=== PATIENT | male | born 1965 | race Caucasian/White ===

== ENCOUNTER 2021-06-16 01:29 | Inpatient (IN) | payer MEDICAID, SELFPAY ==
[~2021-06-16] VITALS: Ht 188 cm; Wt 106.6 kg
[2021-06-16] VITALS (8 sets, daily range): BP systolic 135–164
[~2021-06-16 01:29] MED LIST: AMOX-426 PO; IBUP-1970 PO; L.RH1CAP PO
--- NOTE | 2021-06-16 01:45 | NUR ---
Patient to ER bed 8 to gown for evaluation. Side rails up.
--- NOTE | 2021-06-16 01:48 | NUR ---
Patient BIB by family from home. C/O shortness of breath x 2 days. Patient reported, had cough and shortness of breath since Saturday. (test COVID-19 tree time-negative) A/O,X4, Oxygen sat 88 % RA, shortness of breath, place patient on medication aide and pulse ox, on Oxymizer 5 L/min- oxygen sat 91 %
--- NOTE | 2021-06-16 01:55 | NUR ---
ER Dr. FRAZIER at bedside examining patient.
[2021-06-16] MEDS ORDERED: NS 1000 ML IV.SOLN IV ONE (02:15)
[2021-06-16] MEDS ORDERED: AZITHROMYCIN 500 MG in D5W 250 ML IV ONE (02:15)
[2021-06-16] MEDS ORDERED: cefTRIAXone 1 GM IVPB PREMIX 50 ML IV ONE (02:15)
[2021-06-16 02:35] LABS: BASOPHILS # (AUTO) 0.1 K/uL (0.0-0.2); BASOPHILS % (AUTO) 0.6 % (0.0-2.0); EOSINOPHILS # (AUTO) 0.2 K/uL (0.0-0.4); EOSINOPHILS % (AUTO) 1.3 % (0.0-4.0); HEMATOCRIT 42.6 % (36-54); HEMOGLOBIN 14.6 g/dL (14.0-18.0); LYMPHOCYTES # (AUTO) 0.5 K/uL (1.0-5.5); LYMPHOCYTES % (AUTO) 4.5 % (20.5-51.5); MEAN CORPUSCULAR HEMOGLOBIN 30 pg (27-31); MEAN CORPUSCULAR HGB CONC 34 % (32-36); MEAN CORPUSCULAR VOLUME 87 fL (79.0-98.0); MONOCYTES # (AUTO) 0.8 K/uL (0.0-1.0); MONOCYTES % (AUTO) 6.6 % (1.7-9.3); NEUTROPHILS # (AUTO) 10.7 K/uL (1.8-7.7); PLATELET COUNT (AUTO) 328 K/uL (130-430); RED CELL DISTRIBUTION WIDTH 13.5 % (9.0-15.0); WHITE BLOOD COUNT (AUTO) 12.3 K/uL (4.8-10.8)
[2021-06-16 02:45] LABS: CALCIUM 8.1 mg/dL (8.4-11.0); CREATININE 1.04 mg/dL (0.55-1.30); POTASSIUM 4.1 mmol/L (3.5-5.1)
[2021-06-16 02:51] LABS: ALBUMIN 2.6 g/dL (3.4-4.8); TOTAL BILIRUBIN 0.7 mg/dL (0.0-1.0)
[2021-06-16] MEDS ORDERED: PROMETHAZINE HCL/CODEINE 6.25-10 mg/5 mL UDC PO ONE (03:00)
[2021-06-16 03:02] LABS: PROTHROMBIN TIME 10.1 SECS (9.5-12.5)
[2021-06-16 03:08] LABS: RESPIRATORY SYNCYTIAL VIRUS NEGATIVE (NEGATIVE)
[2021-06-16] MEDS ORDERED: ALBUTEROL SULFATE 0.083% 2.5 MG/3 ML VIAL.NEB INH ONE (03:45)
[2021-06-16] MEDS ORDERED: DEXAMETHASONE SOD PHOSPHATE 10 MG/ML VIAL IVP ONE (03:45)
[2021-06-16] MEDS ORDERED: IPRATROPIUM BROM 0.5 MG/2.5 ML VIAL.NEB (ATROVENT) INH ONE (03:45)
--- NOTE | 2021-06-16 03:55 | NUR ---
RT at bedside for breathing treatment .
--- NOTE | 2021-06-16 04:00 | NUR ---
# 20 gauge angiocath placed to RAC. Use of asceptic technique. Opsite placed over site. Blood return noted. Blood for lab drawn from site. Flushed with 10 cc of normal saline. No evidence of infiltration noted. Patient tolerated well.
[2021-06-16] MEDS ORDERED: AZITHROMYCIN 500 MG/VIAL (ZITHROMAX) IV ONE (04:04)
--- NOTE | 2021-06-16 04:18 | NUR ---
DR. FRAZIER AT BEDSIDE TO EXPLAIN RESULTS AND TREATMENT PLANS.
[2021-06-16] MEDS ORDERED: NALOXONE HCL 0.4 MG/ML AMP (NARCAN) IVP PRN (04:45)
[2021-06-16] MEDS ORDERED: ACETAMINOPHEN/CODEINE 300 MG-30 MG TABLET PO ONE (04:45)
[2021-06-16] MEDS ORDERED: ACETAMINOPHEN/CODEINE 300 MG-30 MG TABLET ONE (04:58)
--- NOTE | 2021-06-16 05:37 | NUR ---
PATIENT IS SLEEPING , NO ACUTE DISTRESS, OXYGEN SAT 93 % WITH OXYMIZER 5 L/MIN
[2021-06-16 05:41] LABS: BILIRUBIN,URINE NEGATIVE (NEGATIVE); BLOOD, URINE NEGATIVE (NEGATIVE); CLARITY/URINE CLEAR (CLEAR); COLOR,URINE YELLOW (YELLOW); GLUCOSE,URINE NEGATIVE (NEGATIVE); KETONES,URINE NEGATIVE (NEGATIVE); LEUKOCYTE ESTERASE ,URINE NEGATIVE (NEGATIVE); NITRITE, URINE NEGATIVE (NEGATIVE); PROTEIN URINE 2+ (NEGATIVE)
[2021-06-16 06:30] LABS: BACTERIA,URINE FEW /HPF (None Seen); WBC,URINE 0-3 /HPF (0-3)
[2021-06-16 06:32] LABS: MUCUS,URINE None Seen /LPF (None Seen)
--- NOTE | 2021-06-16 07:10 | NUR ---
Report given to ESME Arellano and endorse care of patient,
--- NOTE | 2021-06-16 07:22 | NUR ---
PT WITH EYES CLOSED, EASILY AROUSABLE. AAOX4, IN NAD. DENIES ANY SOB, ON OXIMIZER AT 98%, DENIES ANY SOB OR CP. VSS, AFEBRILE. SAFTEY PRECAUTIONS IN PLACE. WILL CONT TO MONITOR. WAIITNG FOR TELE BED. PT AWARE OF PLANOF CARE AND VERBALIZED UNDERSTANDING.
--- NOTE | 2021-06-16 07:38 | NUR ---
CONSULTATION PAGED/CALLED Reason for Consultation: [] PNA Person Who was Notified: [] DR TREVIÑO Consulting Physician: [] DR TREVIÑO Rug Setter Velvet Specialty: [] PULMO Ordering Physician: [] DR NAVARRO
--- NOTE | 2021-06-16 08:02 | NUR ---
BREAKFAST TRAY OFFRERED, PT ATE 100%.WALKED WELL TO BATHROOM, STEADY GAIT.
[2021-06-16] MEDS: IPRATROPIUM/ALBUTEROL SULFATE 3 ML AMPUL.NEB (DUONEB) INH SCH ×5 (08:14→23:00)
--- NOTE | 2021-06-16 09:52 | NUR ---
Patient will be admitted to care of DR NAVAROR. Admitted to unit. Will go to room . Belongings list completed. Complete and up to date summary report printed. SBAR report to be given at bedside with opportunity for questions.
--- NOTE | 2021-06-16 10:05 | NUR ---
Pt arrived from ER via gurney. Pt is A&Ox4. Ambulatory with steady gait. Skin is intact. In gown and placed cardiac technologist on pt. Assessed vitals and had a temp of 99.4, o2 94% NC 4L, BP 164/97, HR 83, RR 16. Bed is in lowest position. Call light within reach. Has a 20g right AC and is patent. Pt states he has 5/10 pain on left side of middle abdomen. Has no other c/o. No s/s of distress. Admissions assessment completed. PCR test done and sent to lab. Will continue to monitor.
[2021-06-16] MEDS ORDERED: ENOXAPARIN SODIUM 40 MG/0.4 ML SYRINGE SUBCUT ONE (10:15)
[2021-06-16] MEDS ORDERED: PIPERACILLIN/TAZO 3.375 GM in NS 50 ML IV SCH (12:00)
[2021-06-16] MEDS ORDERED: IOHEXOL 350 mgI/mL, 150 ML INFUS..BTL IV ONE (12:56)
--- NOTE | 2021-06-16 12:56 | NUR ---
NURSING NOTE Brought pt his lunch tray. Pt is in bed sleeping. Woke pt up to let him know his fed is at bedside. Pt has no c/o. A&Ox4. Bed in lowest position and call light is within reach. Talked with his fiance and let her know that we are waiting for his PCR test results before we can allow him to have any visitors. She is aware that once results are back we will let pt know. Pt's fiance had no c/o and has no further questions. Waiting for pt's medication (Zosyn) to be delivered by pharmacy. Called pharmacy to let them know that the medication was due at 12 and it has still not been received.
[2021-06-16] MEDS ORDERED: PIPERACILLIN/TAZOBACTAM 3.375 GM/ D5W 50 ML IV ONE ×2 (13:00)
--- NOTE | 2021-06-16 13:36 | NUR ---
NURSING NOTE Started pt on his scheduled medication (Zosyn). Pt finished eating his lunch and consumed 100%. Pt has no c/o. Will continue to monitor.
--- NOTE | 2021-06-16 14:59 | NUR ---
NURSING NOTE Pt accidently pulled out his IV. Cleaned site and notified pt that another IV will be placed. Pt has no c/o.
--- NOTE | 2021-06-16 15:09 | NUR ---
NURSING NOTES Placed a 20g IV on right AC. placed dressing and tape to secure IV. Flushed IV and it is patent. No infiltration noted. Pt has no c/o.
[2021-06-16] MEDS: ACETAMINOPHEN 325 MG TABLET PO PRN (15:29)
[2021-06-16] MEDS: PIPERACILLIN/TAZOBACTAM 3.375 GM/ D5W 50 ML IV SCH ×4 (18:23→22:58)
[2021-06-16] MEDS: cloNIDine HCL 0.1 MG TABLET PO PRN (18:23)
--- NOTE | 2021-06-16 18:30 | NUR ---
NURSING NOTE Called in regards to pt c/o abdomen pain on left middle area. Pt rates pain 10/10 and is sharp. Does not radiate. gave telephone order of Toradol 15mg IV to be given and also CT of abdomen/pelvis with contrast.
[2021-06-16] MEDS: KETOROLAC TROMETHAMINE 15 MG VIAL IVP PRN ×2 (18:39→22:59)
--- NOTE | 2021-06-16 19:15 | NUR ---
change of shift.pt.presents isolation status droplet;covid19:pui status.pt.receiving o2 therapy via oximizer rate 3l/min o2-sat% =96%pt.presents iv access intact iv lock.no c/o pain,nausea.pt.capable to reposition self.call light/telephone w/in access of the pt.
[2021-06-16] MEDS: BUDESONIDE 0.5 MG/2 ML AMPUL.NEB INH SCH (19:51)
--- NOTE | 2021-06-16 20:00 | NUR ---
pt.assessed.v/s assessed values wnl.no c/o pain,nausea.iv access intact.o2-sat%=96%.i apprised the pt.that snacks/beverages are available w/in the shift.pt.requested requested any snacks/juices available provided.pt.capable to reposition self.call light/telephone w/in access of the pt.
--- NOTE | 2021-06-16 21:00 | NUR ---
2100pmedications administered.pt.capable to reposition self.no c/o pain,nausea.call light/telephone w/in access of the pt.
--- NOTE | 2021-06-16 22:00 | NUR ---
pt.assessed.pt.present quiescent affect calm,resting.no c/o pain,nausea.no requests posited@this hour.pt.capable to reposition self.call light/telephone w/in access of the pt.
[2021-06-16] MEDS: METHYLPREDNISOLONE SOD SUCC 40 MG/ML VIAL IVP SCH (22:57)
--- NOTE | 2021-06-16 23:00 | NUR ---
pt.had requested medication;pain.i have administered toradol;15mg ivp.to assess the efficacy of the pian medication per pain mgx protocol.
[2021-06-17] VITALS: BP_SYST 132
--- NOTE | 2021-06-17 | NUR ---
pt.assessed.v/s assessed values wnl.no c/o pain,nausea.pt.requested snacks/juices provided.02-sat%=96%.pt.capable to reposition self.iv access intact.call light/telephone w/in access of the pt.
--- NOTE | 2021-06-17 02:00 | NUR ---
pt.assessed.pt.presents quiescent affect;calm,somnolent.per flacc pain mgx pt.absent facial grimaces/body posturing. pt.capable to reposition self.call light/telephone w/in access of the pt.
[2021-06-17] MEDS: IPRATROPIUM/ALBUTEROL SULFATE 3 ML AMPUL.NEB (DUONEB) INH SCH ×3 (03:26→23:00)
--- NOTE | 2021-06-17 04:00 | NUR ---
pt.assessed.pt.presents quiescent affect;calm,somnolent.per flacc pain mgx pt.absent facial grimaces/body posturing. 02-sat%= 96%.pt.capable to reposition self.call light/telephone w/in access of the pt.
[2021-06-17] MEDS: PIPERACILLIN/TAZOBACTAM 3.375 GM/ D5W 50 ML IV SCH ×6 (05:33→18:29)
[2021-06-17] MEDS: KETOROLAC TROMETHAMINE 15 MG VIAL IVP PRN ×3 (05:34→20:22)
--- NOTE | 2021-06-17 06:00 | NUR ---
pt.assessed.pt.had requested medication;pain.toradol:15mg ivp administered.no additional requests posited@this hour. zosyn 0600a dose administered.call light/telephone placed w/in access of the pt.02-sat%=96%.
[2021-06-17 06:35] LABS: BASOPHILS % (AUTO) 0.1 % (0.0-2.0); HEMATOCRIT 38.6 % (36-54); LYMPHOCYTES # (AUTO) 0.5 K/uL (1.0-5.5); LYMPHOCYTES % (AUTO) 3.1 % (20.5-51.5); MEAN CORPUSCULAR HEMOGLOBIN 30 pg (27-31); MEAN CORPUSCULAR HGB CONC 34 % (32-36); MEAN CORPUSCULAR VOLUME 89 fL (79.0-98.0); MONOCYTES # (AUTO) 0.6 K/uL (0.0-1.0); MONOCYTES % (AUTO) 3.8 % (1.7-9.3); NEUTROPHILS # (AUTO) 15.7 K/uL (1.8-7.7); PLATELET COUNT (AUTO) 377 K/uL (130-430); RED BLOOD CELL COUNT(AUTO) 4.35 MIL/uL (4.2-6.2); RED CELL DISTRIBUTION WIDTH 13.6 % (9.0-15.0); WHITE BLOOD COUNT (AUTO) 16.9 K/uL (4.8-10.8)
[2021-06-17 06:54] LABS: ALBUMIN 2.3 g/dL (3.4-4.8); CALCIUM 8.7 mg/dL (8.4-11.0); CREATININE 1.1 mg/dL (0.55-1.30); POTASSIUM 4.1 mmol/L (3.5-5.1); TOTAL BILIRUBIN 0.3 mg/dL (0.0-1.0)
[2021-06-17] MEDS: BUDESONIDE 0.5 MG/2 ML AMPUL.NEB INH SCH ×2 (07:00→19:00)
--- NOTE | 2021-06-17 07:46 | NUR ---
NURSING NOTE Received report from customer care professional RN. Assessed pt and pt is in bed resting with no c/o. A&Ox4. Skin intact. No chest pain and no sob. Pt states he usually has left abdomen pain but he received pain medication and currently has no pain. Bed is in lowest position. Call light is within reach. Neuro checks assessed and all within normal limits. VSS. Ambulatory with steady gait. IV is intact with no infiltration noted. Flushed IV with 5ml NS and is patent. No medications running at this time. Will continue to monitor.
[2021-06-17] MEDS: METHYLPREDNISOLONE SOD SUCC 40 MG/ML VIAL IVP SCH ×2 (08:36→20:19)
[2021-06-17] MEDS: ENOXAPARIN SODIUM 40 MG/0.4 ML SYRINGE SUBCUT SCH (08:37)
[2021-06-17 08:42] VITALS: BP_SYST 148
--- NOTE | 2021-06-17 08:43 | NUR ---
NURSING NOTE Administered ENOXAPARIN and Methylprednisolone to pt. Still waiting for pharmacy to bring his antibiotic (Azithromycin). Pt is A&Ox4. Breakfast is at pt's bedside. Pt has no c/o. IV intact and 5ml NS was flushed. Pt ambulatory with steady gait. No s/s of distress. Will continue to monitor.
[2021-06-17 09:04] LABS: ERYTHROCYTE SEDIMENTATION RATE 84 MM/HR (0-15)
--- NOTE | 2021-06-17 09:40 | NUR ---
NURSING NOTE Called pharmacy to notify them that pt's antibiotic (Azithromycin) has not been delivered and it was due at 0900. Pharmacy stated they had trouble with the labels and will drop medication off as soon as they can.
[2021-06-17] MEDS: AZITHROMYCIN 500 MG in NS 250 ML IV SCH (11:01)
--- NOTE | 2021-06-17 11:05 | NUR ---
NURSING NOTE Administered antibiotic (Azithromycin) to pt and IV is patent. No infiltration noted. Pt stated he wanted more pain medication. His last dose of Toradol was at 0534 and notified pt we need to wait until 1134 for him to get another dose of his pain medication. Pt is aware and has no s/s of distress.
--- NOTE | 2021-06-17 12:05 | NUR ---
NURSING NOTE Pt finished his antibiotic (Azithromycin). Started his other antibiotic (Zosyn). Pt also recieved pain medication (Toradol) due to pain on his left middle abdomen and rates it 10/10.
[2021-06-17 15:15] VITALS: BP_SYST 152
--- NOTE | 2021-06-17 15:33 | NUR ---
NURSING NOTE Removed lunch tray from pt's room. Pt morris no c/o. Pt has no current medications running. IV flushed with 5ml NS and saline lock initiated. Pt is in no distress. Will continue to monitor. Pt has fresh water at bedside.
[2021-06-17] MEDS ORDERED: MILK OF MAGNESIA 30 ML UDC PO PRN (16:15)
[2021-06-17] MEDS ORDERED: DOCUSATE SODIUM 250 MG CAPSULE PO ONE (16:30)
[2021-06-17] MEDS: cloNIDine HCL 0.1 MG TABLET PO PRN ×2 (16:54→20:21)
[2021-06-17 20:00] VITALS: BP_SYST 162
[2021-06-17] MEDS: DOCUSATE SODIUM 250 MG CAPSULE PO SCH (20:19)
[2021-06-18] MEDS: PIPERACILLIN/TAZOBACTAM 3.375 GM/ D5W 50 ML IV SCH ×8 (01:24→17:01)
[2021-06-18] MEDS: IPRATROPIUM/ALBUTEROL SULFATE 3 ML AMPUL.NEB (DUONEB) INH SCH ×4 (03:00→15:00)
[2021-06-18 04:00] VITALS: BP_SYST 138
--- NOTE | 2021-06-18 06:00 | NUR ---
PATIENT WITH 0 S/S OF DISTRESS OR C/O AT THIS TIME. BED IN LOW POSITION WITH SR'S UP X3 AND BED ALARM PROPERLY FUNCTIONING FOR SAFETY.HYDRATION AND CALL LIGHT IN EASY REACH. PATIENT NOTED WITH A PLEASANT/UNEVENTFUL SHIFT. PATIENT TOLERATING OXYMIZER AT 4L NC. NOTE eMAR AND FLOWSHEETS. THIS RN TO SPEAK TO PATIENT ABOUT BEING CONSTIPATED AND HE AGREED IT MIGHT BE TIME FOR LAXATIVE SINCE THE COLACE WASN'T WORKING TO PROMOTE A BM. WILL CONTINUE POC AND REPORT TO ONCOMING NURSE.
[2021-06-18] MEDS: BUDESONIDE 0.5 MG/2 ML AMPUL.NEB INH SCH (07:00)
--- NOTE | 2021-06-18 07:30 | NUR ---
RECEIVED REPORT FROM PM NURSE, PATIENT IS RESTING IN BED, AAO x4. DENIES PAIN/DISCOMFORT. RESPIRATIONS EVEN AND UL ON 4L OXYMIZER, PT HAS SOB WITH EXERTION. DENIES CP/CARDIAC DISCOMFORT. SL TO RH, IV SITE WNL, FLUSHES WELL. ENCOURAGED USE OF IS AND PRONE POSITIONING. ALL NEEDS MET. BED IN LOWEST POSITION, CALL LIGHT IN REACH, SAFETY MEASURES IN PLACE.
[2021-06-18 08:00] VITALS: BP_SYST 184
[2021-06-18] MEDS: DOCUSATE SODIUM 250 MG CAPSULE PO SCH ×2 (09:31→21:11)
[2021-06-18] MEDS: AZITHROMYCIN 500 MG in NS 250 ML IV SCH (09:31)
[2021-06-18] MEDS: METHYLPREDNISOLONE SOD SUCC 40 MG/ML VIAL IVP SCH ×2 (09:31→21:11)
[2021-06-18] MEDS: cloNIDine HCL 0.1 MG TABLET PO PRN ×3 (09:32→21:13)
[2021-06-18] MEDS: ENOXAPARIN SODIUM 40 MG/0.4 ML SYRINGE SUBCUT SCH (09:34)
[2021-06-18 12:00] VITALS: BP_SYST 155
[2021-06-18 16:51] VITALS: BP_SYST 163
--- NOTE | 2021-06-18 17:09 | NUR ---
BP 163/92, 69, MEDICATED WITH PRN CLONIDINE FOR ELEVATED BP. PATIENT RESTING IN BED, AAO x4, DENIES PAIN/DISCOMFORT. RESPIRATIONS EVEN AND UL ON 5L OXYMIZER, OXYGEN SATURATION 92%. ALL NEEDS MET. BED IN LOWEST POSITION/LOCKED, SIDE RAILS x2, CALL LIGHT IN REACH.
--- NOTE | 2021-06-18 18:53 | NUR ---
PATIENT RESTING IN BED, AAO x4, DENIES PAIN/DISCOMFORT. RESPIRATIONS EVEN AND UL ON 5L OXYMIZER. SL TO RH INTACT AND PATENT, IV SITE WNL. NO SIGNIFICANT CHANGES THROUHGOUT SHIFT. ALL NEEDS MET. BED IN LOWEST POSITION, CALL LIGHT IN REACH, SAFETY MEASURES IN PLACE. WILL CONT TO MONITOR AND ENDORSE TO PM NURSE.
--- NOTE | 2021-06-18 19:17 | NUR ---
REPORT GIVEN TO PM NURSE FOR CONTINUITY OF CARE.
[2021-06-18 20:00] VITALS: BP_SYST 195
[2021-06-18] MEDS: KETOROLAC TROMETHAMINE 15 MG VIAL IVP PRN (21:12)
[2021-06-19] VITALS: BP_SYST 170
[2021-06-19] MEDS: PIPERACILLIN/TAZOBACTAM 3.375 GM/ D5W 50 ML IV SCH ×8 (00:13→18:30)
[2021-06-19] MEDS: cloNIDine HCL 0.1 MG TABLET PO PRN (03:02)
[2021-06-19 05:41] VITALS: BP_SYST 170
--- NOTE | 2021-06-19 06:10 | NUR ---
0 S/S OF DISTRESS OR C/O PAIN AT THIS TIME. PATIENT FREE OF FALLS THIS SHIFT- FALL PRECAUTIONS MAINTAINED. NOTE eMAR AND FLOWSHEETS THIS SHIFT. PRN BLOOD PRESSURE MEDICATION GIVEN X2 DOSES AND MOM GIVEN WITH NO RESULTS. HYDRATION AND CALL LIGHT IN EASY REACH. WILL CONTINUE POC AND REPORT TO ONCOMING NURSE.
[2021-06-19 06:30] VITALS: BP_SYST 151
--- NOTE | 2021-06-19 06:50 | NUR ---
PATIENT OXYGEN SETTING REMAINS THE SAME THIS SHIFT- NOTE OXYMIZER 5L NC WITH A SATURATION OF 92% AT THIS TIME.
[2021-06-19] MEDS: BUDESONIDE 0.5 MG/2 ML AMPUL.NEB INH SCH ×2 (07:00→19:00)
[2021-06-19 07:09] LABS: BASOPHILS % (AUTO) 0.2 % (0.0-2.0); EOSINOPHILS % (AUTO) 0.4 % (0.0-4.0); HEMATOCRIT 41.9 % (36-54); HEMOGLOBIN 14.3 g/dL (14.0-18.0); LYMPHOCYTES % (AUTO) 8.4 % (20.5-51.5); MEAN CORPUSCULAR HEMOGLOBIN 30 pg (27-31); MEAN CORPUSCULAR HGB CONC 34 % (32-36); MEAN CORPUSCULAR VOLUME 87 fL (79.0-98.0); MONOCYTES # (AUTO) 0.8 K/uL (0.0-1.0); MONOCYTES % (AUTO) 6.6 % (1.7-9.3); NEUTROPHILS # (AUTO) 10.2 K/uL (1.8-7.7); NEUTROPHILS % (AUTO) 84.4 % (40.0-70.0); PLATELET COUNT (AUTO) 359 K/uL (130-430); RED BLOOD CELL COUNT(AUTO) 4.81 MIL/uL (4.2-6.2); RED CELL DISTRIBUTION WIDTH 13.4 % (9.0-15.0); WHITE BLOOD COUNT (AUTO) 12.1 K/uL (4.8-10.8)
[2021-06-19 07:55] LABS: CALCIUM 8.5 mg/dL (8.4-11.0); CREATININE 1.04 mg/dL (0.55-1.30); POTASSIUM 4.2 mmol/L (3.5-5.1)
--- NOTE | 2021-06-19 08:00 | NUR ---
RECEIVED REPORT FROM PM NURSE, PATIENT IS RESTING IN BED, AAO x4, DENIES PAIN/DISCOMFORT AT THIS TIME. RESPIRATIONS EVEN AND UL ON 5L OXYMIZER, OXYGEN SATURATION 88-89%, TITRATED O2 TO 6L OXYMIZER, OXYGEN SATURATION 92%. 20G TO LFA, IV SITE WNL. ALL NEEDS MET. BED IN LOWEST POSITION, CALL LIGHT IN REACH, SAFETY MEASURES IN PLACE.
[2021-06-19] MEDS: AZITHROMYCIN 500 MG in NS 250 ML IV SCH (09:31)
[2021-06-19] MEDS: DOCUSATE SODIUM 250 MG CAPSULE PO SCH ×2 (09:33→21:45)
[2021-06-19] MEDS: METHYLPREDNISOLONE SOD SUCC 40 MG/ML VIAL IVP SCH (09:33)
[2021-06-19] MEDS: ENOXAPARIN SODIUM 40 MG/0.4 ML SYRINGE SUBCUT SCH (09:36)
[2021-06-19] MEDS: IPRATROPIUM/ALBUTEROL SULFATE 3 ML AMPUL.NEB (DUONEB) INH SCH (11:00)
[2021-06-19 11:26] VITALS: BP_SYST 149
--- NOTE | 2021-06-19 14:17 | NUR ---
CONSULTATION PAGED/CALLED Reason for Consultation: [] PNA/COVID 19 Person Who was Notified: [] GARY Consulting Physician: [] DR STEWART Jewelry Coater Specialty: [] ID Ordering Physician: [] DR NAVARRO
[2021-06-19] MEDS: DEXAMETHASONE SOD PHOSPHATE 10 MG/ML VIAL IVP SCH (15:07)
[2021-06-19 15:51] VITALS: BP_SYST 140
[2021-06-19] MEDS: ALBUTEROL MDI INHALATION 8 GM INH INH SCH (16:21)
--- NOTE | 2021-06-19 18:25 | NUR ---
PER PHARMACIST BARBER, ORDER FOR BARICITINIB BY DR. NAVARRO NEEDS TO BE ORDERED BY DR. CANALES, PULMONOLOGY FOR HOSPITAL AUTHORIZATION PROTOCOL. PER PHARMACIST BARBER, [facility] IS NOT READY, PHARMACY IS WORKING ON GETTING AUTHORIZATION. Addendum: 06/19/21 at 1828 by Two personal consultant PAGED DR. CANALES AND LEFT MESSAGE.
--- NOTE | 2021-06-19 18:54 | NUR ---
PATIENT IS RESTING IN BED, RESPIRATIONS EVEN AND UL ON 6L OXYMIZER. DENIES PAIN/DISCOMFORT. SL TO LFA, IV SITE WNL. PT IS COVID POSITIVE, DR. NAVARRO AWARE. NO SIGNIFICANT CHANGES THROUGHOUT SHIFT. ALL NEEDS MET. BED IN LOWEST POSITION, CALL LIGHT IN REACH, SAFETY MEASURES IN PLACE. WILL CONT TO MONITOR AND ENDORSE TO PM NURSE.
[2021-06-19] MEDS ORDERED: BARICITINIB -Non-Formulary 2 MG TABLET PO ONE (19:00)
--- NOTE | 2021-06-19 19:16 | NUR ---
REPORT GIVEN TO PM NURSE FOR CONTINUITY OF CARE.
[2021-06-19 20:00] VITALS: BP_SYST 154
[2021-06-19] MEDS: MAGNESIUM OXIDE 400 MG TABLET PO SCH (21:44)
[2021-06-19] MEDS: CHOLECALCIFEROL (VITAMIN D3) 2,000 UNIT TABLET PO SCH (21:44)
[2021-06-19] MEDS: ASCORBIC ACID 500 MG TABLET PO SCH (21:47)
[2021-06-19] MEDS: KETOROLAC TROMETHAMINE 15 MG VIAL IVP PRN (21:48)
[2021-06-19] MEDS: ENOXAPARIN SODIUM 100 MG/ML SYRINGE SUBCUT SCH (22:16)
[2021-06-20] MEDS ORDERED: CEFEPIME 1 GM/VIAL (MAXIPIME) ONE (01:48)
[2021-06-20] MEDS: CEFEPIME 1 GM in D5W 50 ML IV SCH ×3 (02:45→23:10)
[2021-06-20] MEDS: ALBUTEROL MDI INHALATION 8 GM INH INH SCH ×8 (03:00→23:36)
[2021-06-20] MEDS: BUDESONIDE 0.5 MG/2 ML AMPUL.NEB INH SCH (07:00)
[2021-06-20 08:00] VITALS: BP_SYST 135
[2021-06-20] MEDS: DOCUSATE SODIUM 250 MG CAPSULE PO SCH ×2 (08:51→22:17)
[2021-06-20] MEDS: MAGNESIUM OXIDE 400 MG TABLET PO SCH ×2 (08:51→22:18)
[2021-06-20] MEDS: CHOLECALCIFEROL (VITAMIN D3) 2,000 UNIT TABLET PO SCH ×2 (08:52→22:17)
[2021-06-20] MEDS: AZITHROMYCIN 500 MG in NS 250 ML IV SCH (08:53)
[2021-06-20] MEDS: ASCORBIC ACID 500 MG TABLET PO SCH ×2 (08:56→22:17)
[2021-06-20] MEDS: BARICITINIB -Non-Formulary 2 MG TABLET PO SCH (09:25)
[2021-06-20] MEDS: ENOXAPARIN SODIUM 100 MG/ML SYRINGE SUBCUT SCH ×2 (09:27→22:17)
[2021-06-20 09:53] LABS: ALBUMIN 2.5 g/dL (3.4-4.8); CALCIUM 8.2 mg/dL (8.4-11.0); CREATININE 0.99 mg/dL (0.55-1.30); POTASSIUM 3.8 mmol/L (3.5-5.1); TOTAL BILIRUBIN 0.3 mg/dL (0.0-1.0)
[2021-06-20 13:05] VITALS: BP_SYST 158
[2021-06-20] MEDS: DEXAMETHASONE SOD PHOSPHATE 10 MG/ML VIAL IVP SCH (14:08)
--- NOTE | 2021-06-20 16:03 | NUR ---
1600: Oxygen saturation = 100%. I reduced oxygen to 4LPM from 6LPM
[2021-06-20 16:25] VITALS: BP_SYST 148
--- NOTE | 2021-06-20 17:47 | NUR ---
1747: Oxygen saturation 94% on 4LPM oxymizer. Reduced oxygen level to 3LPM oxymizer
[2021-06-20 20:30] VITALS: BP_SYST 135
--- NOTE | 2021-06-20 21:05 | NUR ---
Patient awake alert , Regular po diet 100 % consumes , patient using bedside urinal as needed clear yellow urine noted Respirstions Remain Regular also unlabored .
[2021-06-20] MEDS: ACETAMINOPHEN 325 MG TABLET PO PRN (22:17)
--- NOTE | 2021-06-21 00:05 | NUR ---
TYLENOL 650 MG po given for general pain 3/10 off loading with pillows used & also helpful .
[2021-06-21 00:33] VITALS: BP_SYST 139
--- NOTE | 2021-06-21 01:57 | NUR ---
HOURLY ROUNDING Patient Resting is verbally Responsive call jones given to patient chest movement symmetrical .
[2021-06-21] MEDS: ALBUTEROL MDI INHALATION 8 GM INH INH SCH ×6 (03:00→23:30)
--- NOTE | 2021-06-21 05:03 | NUR ---
Hourly Rounding patient Resting is verbally Responsive chest movement symmetrical call jones given to patient / .
[2021-06-21] MEDS: BUDESONIDE 0.5 MG/2 ML AMPUL.NEB INH SCH ×2 (07:00→19:00)
[2021-06-21 07:12] LABS: ALBUMIN 2.4 g/dL (3.4-4.8); CALCIUM 8.1 mg/dL (8.4-11.0); CREATININE 1.01 mg/dL (0.55-1.30); POTASSIUM 3.8 mmol/L (3.5-5.1); TOTAL BILIRUBIN 0.2 mg/dL (0.0-1.0)
[2021-06-21 08:00] VITALS: BP_SYST 151
--- NOTE | 2021-06-21 08:00 | NUR ---
Morning rounds: Pt resting in bed, So s/s of respiratory distress, on 3L oxymizer. IV intact, TKO, no s/s of infiltrates. Isolation precautions in place, call light within reach, bed locked and in low position. Will continue to monitor.
[2021-06-21] MEDS: ENOXAPARIN SODIUM 100 MG/ML SYRINGE SUBCUT SCH ×2 (10:33→21:00)
[2021-06-21] MEDS: ASCORBIC ACID 500 MG TABLET PO SCH ×2 (10:33→21:00)
[2021-06-21] MEDS: CHOLECALCIFEROL (VITAMIN D3) 2,000 UNIT TABLET PO SCH ×2 (10:33→21:00)
[2021-06-21] MEDS: MAGNESIUM OXIDE 400 MG TABLET PO SCH ×2 (10:33→21:00)
[2021-06-21] MEDS: DOCUSATE SODIUM 250 MG CAPSULE PO SCH ×2 (10:33→21:00)
[2021-06-21] MEDS: BARICITINIB -Non-Formulary 2 MG TABLET PO SCH (10:34)
[2021-06-21 12:00] VITALS: BP_SYST 137; BP_SYST 139
--- NOTE | 2021-06-21 12:00 | NUR ---
RN rounds: Pt resting in bed, So s/s of respiratory distress, on 2L oxymizer. IV intact, TKO, no s/s of infiltrates. Isolation precautions in place, call light within reach, bed locked and in low position. Will continue to monitor.
[2021-06-21] MEDS: CEFEPIME 1 GM in D5W 50 ML IV SCH ×2 (12:43→23:07)
[2021-06-21] MEDS: DEXAMETHASONE SOD PHOSPHATE 10 MG/ML VIAL IVP SCH (14:20)
[2021-06-21 16:00] VITALS: BP_SYST 138; BP_SYST 144
--- NOTE | 2021-06-21 18:30 | NUR ---
Closing rounds: Pt resting in bed, No s/s of respiratory distress, on 2L oxymizer. IV intact SL, no s/s of infiltrates. Isolation precautions in place, call light within reach, bed locked and in low position. Will endorse to night monitor. .
[2021-06-21 19:00] VITALS: BP_SYST 155
[2021-06-21 20:00] VITALS: BP_SYST 155
--- NOTE | 2021-06-21 20:00 | NUR ---
Medication: Endorse Remdesivir to supervisor cab, for late administration.
[2021-06-22] MEDS: ALBUTEROL MDI INHALATION 8 GM INH INH SCH ×4 (04:30→15:32)
[2021-06-22] MEDS: BUDESONIDE 0.5 MG/2 ML AMPUL.NEB INH SCH (07:00)
[2021-06-22 07:17] LABS: BASOPHILS % (AUTO) 0.3 % (0.0-2.0); EOSINOPHILS # (AUTO) 0.2 K/uL (0.0-0.4); EOSINOPHILS % (AUTO) 1.2 % (0.0-4.0); HEMATOCRIT 43.3 % (36-54); HEMOGLOBIN 14.5 g/dL (14.0-18.0); LYMPHOCYTES # (AUTO) 2.3 K/uL (1.0-5.5); LYMPHOCYTES % (AUTO) 14.6 % (20.5-51.5); MEAN CORPUSCULAR HEMOGLOBIN 30 pg (27-31); MEAN CORPUSCULAR HGB CONC 34 % (32-36); MEAN CORPUSCULAR VOLUME 88 fL (79.0-98.0); MONOCYTES % (AUTO) 6.2 % (1.7-9.3); NEUTROPHILS # (AUTO) 12.3 K/uL (1.8-7.7); PLATELET COUNT (AUTO) 483 K/uL (130-430); RED BLOOD CELL COUNT(AUTO) 4.91 MIL/uL (4.2-6.2); RED CELL DISTRIBUTION WIDTH 13.6 % (9.0-15.0); WHITE BLOOD COUNT (AUTO) 15.8 K/uL (4.8-10.8)
[2021-06-22 07:51] LABS: ALBUMIN 2.6 g/dL (3.4-4.8); CALCIUM 7.9 mg/dL (8.4-11.0); CREATININE 1.03 mg/dL (0.55-1.30); POTASSIUM 3.8 mmol/L (3.5-5.1); TOTAL BILIRUBIN 0.3 mg/dL (0.0-1.0)
[2021-06-22 08:00] VITALS: BP_SYST 145
[2021-06-22] MEDS: ASCORBIC ACID 500 MG TABLET PO SCH ×2 (09:11→20:38)
[2021-06-22] MEDS: DOCUSATE SODIUM 250 MG CAPSULE PO SCH ×2 (09:11→20:37)
[2021-06-22] MEDS: CHOLECALCIFEROL (VITAMIN D3) 2,000 UNIT TABLET PO SCH ×2 (09:11→20:37)
[2021-06-22] MEDS: BARICITINIB -Non-Formulary 2 MG TABLET PO SCH (09:12)
[2021-06-22] MEDS: MAGNESIUM OXIDE 400 MG TABLET PO SCH ×2 (09:14→20:38)
[2021-06-22] MEDS: ENOXAPARIN SODIUM 100 MG/ML SYRINGE SUBCUT SCH (09:21)
[2021-06-22 12:00] VITALS: BP_SYST 146
[2021-06-22] MEDS ORDERED: VITD2000 PO (12:10)
[2021-06-22] MEDS ORDERED: Zinc Sulfate PO (12:10)
[2021-06-22] MEDS ORDERED: ASC500 PO (12:10)
[2021-06-22] MEDS ORDERED: ALBMDI INH (12:10)
[2021-06-22] MEDS ORDERED: DOXY100C5 PO (12:27)
[2021-06-22] MEDS ORDERED: APIX2.5T PO (12:27)
[2021-06-22] MEDS ORDERED: DEC1 PO (12:27)
[2021-06-22] MEDS ORDERED: DOXYCYCLINE HYCLATE 100 MG CAPSULE PO ONE (12:30)
[2021-06-22 14:23] LABS: NEUTROPHILS % (AUTO) 77.7 % (40.0-70.0)
[2021-06-22 14:40] VITALS: BP_SYST 146
[2021-06-22 16:00] VITALS: BP_SYST 156
[2021-06-22 20:00] VITALS: BP_SYST 139
[2021-06-22] MEDS: DEXAMETHASONE 1 MG TABLET (DECADRON) PO SCH (20:38)
[2021-06-22] MEDS: DOXYCYCLINE HYCLATE 100 MG CAPSULE PO SCH (20:38)
[2021-06-22] MEDS: APIXABAN 2.5 MG TABLET PO SCH (20:39)
[2021-06-23 07:34] LABS: ALBUMIN 2.8 g/dL (3.4-4.8); CALCIUM 8.1 mg/dL (8.4-11.0); CREATININE 1.07 mg/dL (0.55-1.30); POTASSIUM 4.3 mmol/L (3.5-5.1); TOTAL BILIRUBIN 0.2 mg/dL (0.0-1.0)
[2021-06-23 07:59] LABS: BASOPHILS # (AUTO) 0.1 K/uL (0.0-0.2); BASOPHILS % (AUTO) 0.5 % (0.0-2.0); EOSINOPHILS # (AUTO) 0.1 K/uL (0.0-0.4); EOSINOPHILS % (AUTO) 0.6 % (0.0-4.0); HEMATOCRIT 44.7 % (36-54); LYMPHOCYTES # (AUTO) 1.6 K/uL (1.0-5.5); LYMPHOCYTES % (AUTO) 11.6 % (20.5-51.5); MEAN CORPUSCULAR HEMOGLOBIN 30 pg (27-31); MEAN CORPUSCULAR HGB CONC 34 % (32-36); MEAN CORPUSCULAR VOLUME 89 fL (79.0-98.0); MONOCYTES % (AUTO) 7.2 % (1.7-9.3); NEUTROPHILS # (AUTO) 11.2 K/uL (1.8-7.7); NEUTROPHILS % (AUTO) 80.1 % (40.0-70.0); PLATELET COUNT (AUTO) 512 K/uL (130-430); RED BLOOD CELL COUNT(AUTO) 5.05 MIL/uL (4.2-6.2); RED CELL DISTRIBUTION WIDTH 13.6 % (9.0-15.0); WHITE BLOOD COUNT (AUTO) 13.9 K/uL (4.8-10.8)
[2021-06-23 09:15] VITALS: BP_SYST 142
[2021-06-23] MEDS: DOCUSATE SODIUM 250 MG CAPSULE PO SCH (09:19)
[2021-06-23] MEDS: BARICITINIB -Non-Formulary 2 MG TABLET PO SCH (09:19)
[2021-06-23] MEDS: ASCORBIC ACID 500 MG TABLET PO SCH (09:20)
[2021-06-23] MEDS: MAGNESIUM OXIDE 400 MG TABLET PO SCH (09:20)
[2021-06-23] MEDS: CHOLECALCIFEROL (VITAMIN D3) 2,000 UNIT TABLET PO SCH (09:21)
[2021-06-23] MEDS: DOXYCYCLINE HYCLATE 100 MG CAPSULE PO SCH (09:21)
[2021-06-23] MEDS: DEXAMETHASONE 1 MG TABLET (DECADRON) PO SCH (09:21)
[2021-06-23] MEDS: APIXABAN 2.5 MG TABLET PO SCH (09:24)
--- NOTE | 2021-06-23 09:26 | NUR ---
NURSE NOTE Assessed pt and pt is in bed resting talking on the phone. Pt is A&Ox4. No sob and no chest pain present. Skin intact. IV intact. No s/s of distress. Ambulatory with steady gait. VSS. Bed in lowest position and call light within reach.
[2021-06-23] MEDS ORDERED: MAGN400T10 PO (10:30)
[2021-06-23] MEDS ORDERED: ZINC220T4 PO (10:37)
--- NOTE | 2021-06-23 10:51 | NUR ---
NURSE NOTE Pt is being discharged. Notified pt so he can schedule transportation and gather all his belongings. Pt has no c/o. VSS. Pt was removed from Oxymizer and is on RA now. Pt displays no sob, no chest pain, and his O2 saturation is 97%. All other vitals stable. Skin intact. IV line removed and bandaged to prevent bleeding. Pressure applied for 2 minutes. No s/s of distress.
[2021-06-23 10:54] VITALS: BP_SYST 139
[2021-06-23 10:59] VITALS: BP_SYST 139
== END 2021-06-23 11:30 | disposition home or self-care (01) | DRG 720 ==
LOC: SED 01:29 → STU 04:31 → SMU 06-21 10:47
PROVIDERS: ADMIT Internal Medicine; ATTEND Internal Medicine
PROC: XW033E5 Introduction of Remdesivir Anti-infective into Peripheral Vein, Percutaneous Approach, New Technology Group 5 (ICD-10-PCS; principal; 2021-06-20)
DX: A41.9 Sepsis, unspecified organism (principal); J96.00 Acute respiratory failure, unspecified whether with hypoxia or hypercapnia; J12.82 Pneumonia due to coronavirus disease 2019; U07.1 COVID-19; J44.0 Chronic obstructive pulmonary disease with (acute) lower respiratory infection; J44.1 Chronic obstructive pulmonary disease with (acute) exacerbation; K42.9 Umbilical hernia without obstruction or gangrene; E66.9 Obesity, unspecified; F17.200 Nicotine dependence, unspecified, uncomplicated; K57.90 Diverticulosis of intestine, part unspecified, without perforation or abscess without bleeding; K56.41 Fecal impaction; Z88.2 Allergy status to sulfonamides; Z91.09 Other allergy status, other than to drugs and biological substances; Z79.899 Other long term (current) drug therapy; Z79.1 Long term (current) use of non-steroidal anti-inflammatories (NSAID); Z68.30 Body mass index [BMI] 30.0-30.9, adult
CPT/HCPCS: 36415; 71045; 71275; 76376; 76770; 80048; 80053; 81000; 82728; 82962; 83605; 84484; 85025; 85379; 85610-TC; 85651-TC; 85730-TC; 86140; 86710; 87040-TC; 87086; 87420; 93005; 94640; 94664; 94760; 96365; 96368; 96375; 99291; G0378; J0456; J0692; J0696; J1030; J1100; J1650; J1885; J2543; J7050; J7060; J7613; J7626; Q9967; U0003